=== PATIENT | female | born 1960 | race Caucasian/White ===

== ENCOUNTER → 2021-04-09 | Day surgery (SDC) | payer MEDICARE ==
[~2021-04-09] VITALS: Ht 162.6 cm; Wt 47.2 kg
[~2021-04-09] MED LIST: ASPIRIN EC81 MG PO; BUSPIRONE HCL7.5 MG PO; DULERA 200 MCG8.8 GM INH; FOSAMAX70 MG PO; PLAVIX75 MG PO; SPIRIVA 18MCG18 MCG INH; VITAMIN D3 PO; XYZAL5 MG PO; [UNRECOGNIZED DRUG - OTHER] PO
== END | disposition home or self-care (01) ==
LOC: FAS 11:36
DX: K52.9 Noninfective gastroenteritis and colitis, unspecified (principal); K57.30 Diverticulosis of large intestine without perforation or abscess without bleeding; K63.89 Other specified diseases of intestine; D12.3 Benign neoplasm of transverse colon; D12.5 Benign neoplasm of sigmoid colon; K62.1 Rectal polyp; M19.90 Unspecified osteoarthritis, unspecified site; J44.9 Chronic obstructive pulmonary disease, unspecified; E78.00 Pure hypercholesterolemia, unspecified; B19.20 Unspecified viral hepatitis C without hepatic coma; Z80.0 Family history of malignant neoplasm of digestive organs; Z87.19 Personal history of other diseases of the digestive system; Z79.02 Long term (current) use of antithrombotics/antiplatelets; Z79.82 Long term (current) use of aspirin; Z72.89 Other problems related to lifestyle; Z72.0 Tobacco use
CPT/HCPCS: J1610; J2250; J7120

== ENCOUNTER 2022-02-01 14:07 | Emergency (ER) | payer MEDICARE ==
[2022-02-01] MEDS ORDERED: PREDNISONE 20MG20 MG PO (15:43)
[2022-02-01] MEDS ORDERED: BACLOFEN 10MG T10 MG PO (15:43)
== END 2022-02-01 16:06 | disposition home or self-care (01) ==
LOC: FER 14:07
DX: M54.41 Lumbago with sciatica, right side (principal); F17.210 Nicotine dependence, cigarettes, uncomplicated
CPT/HCPCS: 72110; 96372; J1100; J1885